=== PATIENT | female | born 1990 | race Asian ===

== ENCOUNTER 2018-07-19 11:23 | Emergency (ER) | payer BC ==
[~2018-07-19] VITALS: Ht 152.4 cm; Wt 64.9 kg
[2018-07-19 11:39] VITALS: BP 125/74; Ht 152.4 cm; Wt 64.9 kg
== END 2018-07-19 11:57 | disposition left against medical advice (07) ==
LOC: ED 11:23
DX: Z53.21 Procedure and treatment not carried out due to patient leaving prior to being seen by health care provider (principal)